=== PATIENT | female | born 1985 | race Caucasian/White ===

== ENCOUNTER → 2017-12-11 | Outpatient (CLI) | payer OTHER ==
[~2017-12-11] MED LIST: ACET-1175 PO; PRED-301 PO; PRENTAB26 PO
== END | disposition home or self-care (01) ==
LOC: C.PAPS 14:25
PROVIDERS: ATTEND Obstetrics & Gynecology
DX: Z01.419 Encounter for gynecological examination (general) (routine) without abnormal findings (principal)